=== PATIENT | male | born 1970 | race Caucasian/White ===

== ENCOUNTER 2017-05-29 09:27 | Emergency (ER) | payer BC, OTHER ==
[~2017-05-29] VITALS: Ht 167.6 cm; Wt 106.4 kg
[~2017-05-29 09:27] MED LIST: NOCURR
[2017-05-29] MEDS ORDERED: AMIT10TA6 PO (09:46)
[2017-05-29] MEDS ORDERED: HYDR25TA PO (09:46)
[2017-05-29] MEDS ORDERED: LEVO25TA9 PO (09:46)
[2017-05-29] MEDS ORDERED: ATOR40TA28 PO (09:46)
[2017-05-29] MEDS ORDERED: OMEG-53 PO (09:46)
[2017-05-29] MEDS ORDERED: METO25 PO (09:46)
[2017-05-29] MEDS ORDERED: CITA20TA9 PO (09:46)
[2017-05-29] MEDS ORDERED: IBUP-1506 PO (09:46)
[2017-05-29] MEDS ORDERED: KETOROLAC TROMETHAMINE 60 MG/2 ML VIAL IM ONE (10:00)
[2017-05-29] MEDS ORDERED: METHOCARBAMOL 500 MG TABLET PO ONE (10:00)
[2017-05-29 12:13] VITALS: BP 146/91
== END 2017-05-29 12:19 | disposition home or self-care (01) ==
LOC: EMS 09:29
DX: S32.010A Wedge compression fracture of first lumbar vertebra, initial encounter for closed fracture (principal); S32.040A Wedge compression fracture of fourth lumbar vertebra, initial encounter for closed fracture; F07.81 Postconcussional syndrome; I10 Essential (primary) hypertension; E78.00 Pure hypercholesterolemia, unspecified; W11.XXXA Fall on and from ladder, initial encounter; Y93.H2 Activity, gardening and landscaping; Y92.89 Other specified places as the place of occurrence of the external cause; Y99.8 Other external cause status
CPT/HCPCS: 70450; 72100; 96372; 99284; J1885

== ENCOUNTER 2019-04-27 14:15 | Emergency (ER) | payer BC, OTHER ==
[~2019-04-27] VITALS: Ht 167.6 cm; Wt 95.0 kg
[~2019-04-27 14:15] MED LIST changes: +AMIT10TA6 PO; +ATOR40TA28 PO; +CITA-106 PO; +HYDR25TA PO; +IBUP-1506 PO; +LEVO25TA9 PO; +METO25 PO; +OMEG-53 PO
[2019-04-27] MEDS ORDERED: IBUP-2070 PO (14:39)
[2019-04-27] MEDS ORDERED: KETOROLAC TROMETHAMINE 30 MG/ML VIAL IM ONE (16:00)
[2019-04-27] MEDS ORDERED: LISI-657 PO (16:01)
[2019-04-27 17:20] VITALS: BP 153/79
== END 2019-04-27 17:48 | disposition home or self-care (01) ==
LOC: EMS 14:16
DX: R07.89 Other chest pain (principal); R51 Headache; F32.9 Major depressive disorder, single episode, unspecified; I10 Essential (primary) hypertension; E78.00 Pure hypercholesterolemia, unspecified; V49.9XXA Car occupant (driver) (passenger) injured in unspecified traffic accident, initial encounter; Y93.89 Activity, other specified; Y92.89 Other specified places as the place of occurrence of the external cause; Y99.8 Other external cause status
CPT/HCPCS: 71046; 93005; 96372; 99283; J1885

== ENCOUNTER 2021-11-21 17:11 | Emergency (ER) | payer OTHER ==
[~2021-11-21] VITALS: Ht 167.6 cm; Wt 72.7 kg
[~2021-11-21 17:11] MED LIST changes: +AMIT-166 PO; -AMIT10TA6 PO; -CITA-106 PO; +CITA-144 PO; -HYDR25TA PO; -IBUP-1506 PO; +IBUP-2070 PO; -LEVO25TA9 PO; +LISI-657 PO; -NOCURR; -OMEG-53 PO
[2021-11-21 21:44] VITALS: BP 190/107
== END 2021-11-21 21:59 | disposition home or self-care (01) ==
LOC: EMS 17:11
DX: S00.93XA Contusion of unspecified part of head, initial encounter (principal); S10.93XA Contusion of unspecified part of neck, initial encounter; S80.02XA Contusion of left knee, initial encounter; S80.212A Abrasion, left knee, initial encounter; S80.211A Abrasion, right knee, initial encounter; F32.A Depression, unspecified; E78.00 Pure hypercholesterolemia, unspecified; I10 Essential (primary) hypertension; Z98.52 Vasectomy status; Z98.890 Other specified postprocedural states; Y04.8XXA Assault by other bodily force, initial encounter; Y93.89 Activity, other specified; Y92.89 Other specified places as the place of occurrence of the external cause; Y99.8 Other external cause status
CPT/HCPCS: 70450; 72125; 99284

== ENCOUNTER 2022-09-29 20:49 | Emergency (ER) | payer OTHER ==
[~2022-09-29] VITALS: Ht 167.6 cm; Wt 68.0 kg
[~2022-09-29 20:49] MED LIST changes: +IBUP-1492 PO; -IBUP-2070 PO
[2022-09-29] MEDS ORDERED: KETOROLAC TROMETHAMINE 60 MG/2 ML VIAL IM ONE (22:15)
[2022-09-30 01:02] VITALS: BP 147/87
== END 2022-09-30 02:01 | disposition home or self-care (01) ==
LOC: EMS 20:58
DX: M54.50 Low back pain, unspecified (principal); F32.A Depression, unspecified; E78.00 Pure hypercholesterolemia, unspecified; I10 Essential (primary) hypertension; Z98.890 Other specified postprocedural states; V99.XXXA Unspecified transport accident, initial encounter; Y93.89 Activity, other specified; Y92.89 Other specified places as the place of occurrence of the external cause; Y99.8 Other external cause status
CPT/HCPCS: 99283; 72040; 72070; 72100; 96372; J1885